=== PATIENT | male | born 1950 | race Caucasian/White ===

== ENCOUNTER 2024-02-20 12:25 | Outpatient (CLI) | payer MEDICARE | END 2024-02-20 23:59 | disposition home or self-care (01) | LOC: MRI 12:25 | PROVIDERS: ATTEND Pediatrics Sports Medicine | DX: M48.07 Spinal stenosis, lumbosacral region (principal); M47.816 Spondylosis without myelopathy or radiculopathy, lumbar region; M51.37 Other intervertebral disc degeneration, lumbosacral region; N28.1 Cyst of kidney, acquired; M62.58 Muscle wasting and atrophy, not elsewhere classified, other site; M43.8X6 Other specified deforming dorsopathies, lumbar region; M79.604 Pain in right leg; M54.50 Low back pain, unspecified; M62.81 Muscle weakness (generalized); R20.2 Paresthesia of skin; R20.9 Unspecified disturbances of skin sensation | CPT/HCPCS: 72148 ==